=== PATIENT | male | born 1965 | race Caucasian/White ===

== ENCOUNTER → 2020-07-03 08:23 | Outpatient (BNVA) | payer OTHER, SELFPAY | PROVIDERS: Family Provider Internal Medicine; PCP Family Medicine; Visit Provider Family Medicine | DX: Z13.6 Encounter for screening for cardiovascular disorders (principal); J43.1 Panlobular emphysema; R13.19 Other dysphagia; R35.1 Nocturia; F17.219 Nicotine dependence, cigarettes, with unspecified nicotine-induced disorders | CPT/HCPCS: 80053; 80061; 84153; 85025 ==

== ENCOUNTER → 2020-09-13 08:56 | Outpatient (BNVA) | payer OTHER, SELFPAY | PROVIDERS: Family Provider Internal Medicine; PCP Family Medicine; Visit Provider Family Medicine | DX: S67.22XA Crushing injury of left hand, initial encounter (principal); M79.642 Pain in left hand; X58.XXXA Exposure to other specified factors, initial encounter | CPT/HCPCS: 73130 ==

== ENCOUNTER → 2021-07-27 14:50 | Outpatient (BNVA) | payer OTHER, SELFPAY | PROVIDERS: Family Provider Internal Medicine; PCP Family Medicine; Visit Provider Family Medicine | DX: L81.9 Disorder of pigmentation, unspecified (principal) | CPT/HCPCS: 88304 ==

== ENCOUNTER 2024-09-07 10:58 | Outpatient (CLI) | payer BC, MEDICAID, SELFPAY | END 2024-09-07 10:59 | disposition home or self-care (01) | LOC: LAB 09-09 16:08 | PROVIDERS: PCP Family Medicine; Visit Provider Family Medicine | DX: Z13.6 Encounter for screening for cardiovascular disorders (principal); R35.1 Nocturia | CPT/HCPCS: 80053; 80061; 84153; 84443; 85025 ==

== ENCOUNTER 2024-09-14 09:47 | Outpatient (CLI) | payer BC, MEDICAID, SELFPAY ==
--- NOTE | 2024-09-14 10:00 | CT_ITS ---
WS: [id number] LDCT LUNG CANCER SCREENING TECHNIQUE: Noncontrast CT of the chest with coronal and sagittal reformatted images. CLINICAL INFORMATION: screening COMPARISON: None. DLP: 66.99 mGy.cm DIvol: Mean CTDIvol: 1.40 (mGy) All CT scans at [facility] use at least one of these dose optimization techniques: automated exposure control; mA and/or kV adjustment per patient size (includes targeted exams where dose is matched to clinical indication); or iterative reconstruction. FINDINGS: Noncalcified nodule LEFT lower lobe measuring 7 mm. Additional tiny adjacent satellite nodule. Calcified granuloma LEFT lower lobe. A few tiny scattered subpleural nodules bilaterally. No suspicious pulmonary parenchymal abnormalities. Aortic calcification. Calcified subcarinal lymph nodes. No mediastinal or hilar lymphadenopathy. Enlarged bilateral axillary lymph nodes largest measuring 2.0 cm on the RIGHT. Recommend further evaluation with ultrasound and clinical correlation. Adrenal glands are normal. Small esophageal hiatal hernia. Moderate thoracic kyphosis. Mild thoracic curve. CT/CT lung screening [id number] IMPRESSION: Enlarged bilateral axillary lymph node. These are specific and aziza mmend further evaluation with ultrasound. Recommend clinical correlation. LUNG-RADS: 2S-Benign Appearance or Behavior with Significant Findings FOLLOW UP: 12 Month: Continue annual screening with LDCT
== END 2024-09-14 09:48 | disposition home or self-care (01) ==
LOC: RAD 09:47
PROVIDERS: PCP Family Medicine; Visit Provider Family Medicine
DX: Z12.2 Encounter for screening for malignant neoplasm of respiratory organs (principal); F17.219 Nicotine dependence, cigarettes, with unspecified nicotine-induced disorders; R91.1 Solitary pulmonary nodule; J98.4 Other disorders of lung; I70.8 Atherosclerosis of other arteries; R59.0 Localized enlarged lymph nodes
CPT/HCPCS: 71271

== ENCOUNTER 2024-09-22 06:25 | Outpatient (CLI) | payer BC, MEDICAID, SELFPAY ==
--- NOTE | 2024-09-22 06:30 | US_ITS ---
WS: [id number] ULTRASOUND SOFT TISSUES HISTORY: Swollen nodes COMPARISON: CT 09/14/2024 TECHNIQUE: 2-D and color Doppler imaging is submitted. Lymph nodes are noted within each axilla. In the RIGHT axilla there are lymph nodes which are normal size but there is cortical thickening and asymmetry of the central fat. Cortical diameter up to 4.5 mm. Similar lymph node in the LEFT axilla. This is a small lymph node but replacement of the central fatty hilum. Cortical thickening. US/US soft tissue/extremity [id number] IMPRESSION: 1. Small bilateral axillary lymph nodes. 2. Although these lymph nodes are normal size there is cortical thickening and loss or displacement of the central fatty hilum. Early neoplastic change not e xcluded. This may be neoplastic or reactive. PET/CT would be helpful.
== END 2024-09-22 06:26 | disposition home or self-care (01) ==
LOC: RAD 06:25
PROVIDERS: PCP Family Medicine; Visit Provider Family Medicine
DX: R59.0 Localized enlarged lymph nodes (principal)
CPT/HCPCS: 76882

== ENCOUNTER 2024-10-01 11:56 | Outpatient (CLI) | payer BC, MEDICAID, SELFPAY ==
--- NOTE | 2024-10-01 12:30 | PETR_ITS ---
PROCEDURE INFORMATION: Exam: PET/CT Skull Base to Mid-thigh Exam date and time: 10/01/2024 1:44 PM Age: 59 years old Clinical indication: Symptoms: Lymphadenopathy; Enlarged bilateral axillary lymph node; Additional info: Lymphadenopathy/unintentional weight loss. LABS AND CLINICAL REPORTS: Glucose: 73 mg/dl Treatment strategy for malignancy (PET staging): Initial Staging (PI) TECHNIQUE: Imaging protocol: Following at least four-hour fasting and following the injection of radiopharmaceutical, low dose CT images were obtained. Then, PET images were obtained. Attenuation corrected images were constructed using the CT scan. Fused images of PET and CT were reviewed. The standardized uptake values (SUV) reported below are maximum values within a region of interest, expressed in gm/ml. Exam includes orbital meatal line to mid-thigh. SUV normalization method: BodyWeight Radiopharmaceutical: 10 mCi F-18 FDG (Fluorodeoxyglucose), IV. Time of imaging post radiopharmaceutical administration: 45 minutes Injection site: right ac COMPARISON: CT lung screening [id number] 09/14/2024 10:10 AM FINDINGS: Brain: Visualized brain has normal physiologic uptake. Pharynx: No abnormal uptake. Larynx: No abnormal uptake. Lungs, pleura and trachea: No abnormal uptake. Punctate calcified granuloma in the left lower lobe. Heart: Normal physiologic uptake. Mediastinal space: No abnormal uptake. Hilar and mediastinal calcified lymph nodes, suggestive of prior granulomatous organism exposure. Esophagus: Mild increased FDG uptake within the distal esophageal lumen, maximum SUV 5.9. There is no increased FDG uptake of the esophageal wall, which appears non thickened. Liver: No abnormal uptake. Gallbladder and biliary ducts: No abnormal uptake. Cholelithiasis without cholecystitis. Pancreas: No abnormal uptake. Spleen: No abnormal uptake. Adrenal glands: No abnormal uptake. Kidneys and ureters: Normal physiologic uptake. Stomach and bowel: No abnormal uptake. Colonic diverticulosis without evidence of diverticulitis. Vasculature: No abnormal uptake. Lymph nodes: Hypermetabolic bilateral axillary lymph nodes, some of which are enlarged and measure up to 1.2 cm in short axis. Maximum SUV is obtained from a posterior left axillary lymph node measuring 1.1 cm in short axis, max SUV 11.9. There are also bilateral mildly prominent inguinal lymph nodes, some of which demonstrate hypermetabolic activity, maximum SUV 6.5 obtained from a right superior inguinal lymph node measuring 0.8 cm in short axis, nonenlarged by CT size criteria. There is no hypermetabolic lymphadenopathy within the head/neck or mediastinum. Skeleton: No abnormal uptake in the visualized axial and appendicular skeleton. Soft tissues: No abnormal uptake in the visualized head, neck, chest, abdomen, pelvis, and extremities. METRICS: Mediastinal blood pool: Mean SUV of 1.9 Liver uptake: Mean SUV of 2.2 PET/PET skull to thigh INIT [id number] IMPRESSION: 1. Mildly prominent bilateral axillary lymph nodes with higher than expected increased metabolic activity. There also mildly hypermetabolic lymph nodes noted in bilateral inguinal regions. There is otherwise no hypermetabolic lymphadenopathy within the head/neck, intrathoracic or intra-abdominal spaces. Findings are nonspecific and may be reactive, possibly due to recent injection or inflammation. No functional or anatomic evidence to suggest malignancy. Continued follow-up is recommended. 2. Mild increased FDG uptake within the distal esophageal lumen, without increased uptake of the esophageal wall, which appears non thickened. This may be due to mild esophagitis/inflammation.
== END 2024-10-01 11:57 | disposition home or self-care (01) ==
LOC: RAD 11:57
PROVIDERS: PCP Family Medicine; Visit Provider Family Medicine
DX: R59.1 Generalized enlarged lymph nodes (principal); R63.4 Abnormal weight loss; J98.4 Other disorders of lung; K80.20 Calculus of gallbladder without cholecystitis without obstruction; K22.89 Other specified disease of esophagus; K57.30 Diverticulosis of large intestine without perforation or abscess without bleeding
CPT/HCPCS: 78815; A9552

== ENCOUNTER → 2024-10-05 11:52 | Outpatient (BNVA) | payer BC, MEDICAID, SELFPAY | PROVIDERS: PCP Family Medicine | DX: R59.0 Localized enlarged lymph nodes (principal) | CPT/HCPCS: 83615; 85025; 86140; 87389 ==